=== PATIENT | male | born 2000 | race Caucasian/White ===

== ENCOUNTER 2023-08-28 07:59 | Emergency (ER) | payer MEDICAID, OTHER ==
[~2023-08-28] VITALS: Ht 180.3 cm; Wt 68.2 kg
[2023-08-28 08:39] VITALS: BP 120/75; PULSE 85; RESP 16; TEMP 97.7; O2SAT 97
[2023-08-28] MEDS ORDERED: MORPHINE SULFATE INJ 2 MG/ml SYRG IM ONE (09:30)
== END 2023-08-28 09:49 | disposition home or self-care (01) ==
LOC: ER 07:59
DX: S82.391A Other fracture of lower end of right tibia, initial encounter for closed fracture (principal); S82.831A Other fracture of upper and lower end of right fibula, initial encounter for closed fracture; M79.604 Pain in right leg; V89.9XXA Person injured in unspecified vehicle accident, initial encounter; Y93.89 Activity, other specified; Y92.89 Other specified places as the place of occurrence of the external cause; Y99.8 Other external cause status
CPT/HCPCS: 73610; 93971

== ENCOUNTER 2025-06-16 19:33 | Emergency (ER) | payer MEDICAID ==
[~2025-06-16] VITALS: Ht 175.3 cm; Wt 68.2 kg
[2025-06-16 19:35] VITALS: O2SAT 100
--- NOTE | 2025-06-16 20:29 | DVH ---
CLINICAL INDICATION: left great toe pain TECHNIQUE: XY left FOOT 3 VIEW XRAY Comparison: XY R ANKLE 3 VIEW on DOS: 08/28/23 FINDINGS/IMPRESSION: There is no evidence of acute fracture or dislocation. Soft tissues are unremarkable.
[2025-06-16] MEDS ORDERED: BACDST PO (21:03)
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
[2025-06-16 22:20] VITALS: BP 120/72; PULSE 64; RESP 16; TEMP 98.1
== END 2025-06-16 22:20 | disposition home or self-care (01) ==
LOC: ER 19:33
DX: L03.032 Cellulitis of left toe (principal); S90.112A Contusion of left great toe without damage to nail, initial encounter; S90.32XA Contusion of left foot, initial encounter; B35.1 Tinea unguium; W22.8XXA Striking against or struck by other objects, initial encounter; Y93.89 Activity, other specified; Y92.89 Other specified places as the place of occurrence of the external cause; Y99.8 Other external cause status
CPT/HCPCS: 73630